=== PATIENT | female | born 1945 | race Caucasian/White ===

== ENCOUNTER → 2016-05-03 | Outpatient (CLI) | payer OTHER | LOC: BMCIMAGING 10:07 | PROVIDERS: ATTEND Family Medicine | DX: Z12.31 Encounter for screening mammogram for malignant neoplasm of breast (principal); M81.0 Age-related osteoporosis without current pathological fracture | CPT/HCPCS: G0202 ==

== ENCOUNTER → 2016-05-18 | Outpatient (CLI) | payer OTHER | LOC: BMCIMAGING 13:23 | DX: Z12.39 Encounter for other screening for malignant neoplasm of breast (principal); R92.2 Inconclusive mammogram | CPT/HCPCS: G0206 ==

== ENCOUNTER → 2017-05-09 | Outpatient (CLI) | payer OTHER | LOC: BMCIMAGING 13:15 | PROVIDERS: ATTEND Internal Medicine | DX: Z12.31 Encounter for screening mammogram for malignant neoplasm of breast (principal) ==

== ENCOUNTER → 2017-11-03 | Outpatient (CLI) | payer OTHER ==
[~2017-11-03] MED LIST: IOPAMIDOL (ISOVUE-300) 100 ML BTL ONE
== END ==
LOC: FIMAGING 12:44
PROVIDERS: ATTEND Internal Medicine
DX: N20.0 Calculus of kidney (principal)
CPT/HCPCS: 74177; Q9967; 82565-PO

== ENCOUNTER → 2017-11-16 | Outpatient (CLI) | payer OTHER | LOC: FIMAGING 12:05 | PROVIDERS: ATTEND Urology | DX: N13.30 Unspecified hydronephrosis (principal) ==

== ENCOUNTER → 2018-01-05 | Outpatient (CLI) | payer OTHER | LOC: BMCIMAGING 12:51 | PROVIDERS: ATTEND Obstetrics & Gynecology | DX: N85.2 Hypertrophy of uterus (principal); R93.89 Abnormal findings on diagnostic imaging of other specified body structures ==

== ENCOUNTER → 2018-05-22 | Outpatient (CLI) | payer OTHER | LOC: BMCIMAGING 14:12 | PROVIDERS: ATTEND Internal Medicine | DX: Z12.31 Encounter for screening mammogram for malignant neoplasm of breast (principal) ==

== ENCOUNTER → 2018-08-10 | Outpatient (CLI) | payer OTHER | LOC: BMCIMAGING 07:50 ==